=== PATIENT | female | born 1985 | race American Indian/Alaskan Native ===

== ENCOUNTER 2016-11-08 15:15 | Inpatient (IN) | payer SELFPAY ==
[2016-11-08 16:46] LABS: Basophils % (Auto) 0.6 % (0.0-1.8); Eosinophils % (Auto) 0.7 % (0.0-4.3); Hematocrit 37.5 % (30.3-42.9); Hemoglobin 12.1 gm/dl (10.1-14.3); Mean Corpuscular HGB Conc 32 % (30-34); Mean Corpuscular Hemoglobin 26 pg (28-32); Mean Corpuscular Volume 82 fl (79-97); Platelet Count 180 K/mm3 (140-440); Red Blood Count 4.57 M/mm3 (3.65-5.03); Red Cell Distribution Width 13.5 % (13.2-15.2); White Blood Count 5.6 K/mm3 (4.5-11.0)
[2016-11-08 16:57] LABS: INR 1.1 (0.87-1.13)
[2016-11-08 16:58] LABS: Partial Thromboplastin Time 30.5 Sec. (24.2-36.6)
[2016-11-08 17:07] LABS: Anion Gap 16 mmol/L; Blood Urea Nitrogen 9 mg/dL (7-17); Calcium 9.5 mg/dL (8.4-10.2); Carbon Dioxide 25 mmol/L (22-30); Chloride 100.4 mmol/L (98-107); Glucose 95 mg/dL (65-100); Potassium 3.8 mmol/L (3.6-5.0); Sodium 138 mmol/L (137-145)
--- NOTE | 2016-11-08 18:58 | Cat Scan Report ---
FINAL REPORT EXAM: CT HEAD/BRAIN WO CON HISTORY: neuro deficits \T\lt; 6hrs or sx present upon awakening TECHNIQUE: Standard unenhanced CT of the head at 5.0 millimeter axial increments. PRIORS: None. FINDINGS: The ventricular system is normal in size and configuration. There is no evidence for parenchymal volume loss. There is no evidence for mass lesion, mass effect, midline shift, acute intracranial hemorrhage, or acute ischemia/ infarction. No evidence for acute skull fracture is seen. No abnormality in the overlying scalp soft tissues is seen. Numerous focal calcifications along the falx are seen. Visualized paranasal sinuses are clear. IMPRESSION: Negative CT of the head. No acute intracranial process noted.
--- NOTE | 2016-11-08 23:05 | Emergency Department Report ---
HPI - General Chief Complaint: Neuro Symptoms/Deficit Time Seen by Provider: 11/08/16 22:52 - HPI HPI: This is a 31-year-old Afro-Portuguese female presents the emergency department with complaint of right-sided facial numbness and some difficulty with talking. The patient says that a coworker this morning told her that the right side of her face appeared to be slightly drooping. She also has pain to the right lower jaw and has concern for a dental infection. The patient says that it is making her mouth "twist when she talks." Otherwise the patient denies any headache, vision change, problems with movement or ambulation or any another neurological deficits. However the twisting when she talks is causing her to have some slurred speech. The patient says that these symptoms occur intermittently. She has a history of scoliosis. She has a primary care doctor but has not seen them regarding the symptoms. No recent travel or sick contacts at home. She denies any tobacco use or any illicit drug use. ED Past Medical Hx - Past Medical History Previous Medical History?: Yes Additional medical history: Scoliosis. CHRONIC PELVIC PAIN. RUPTURED CYSTS - Surgical History Past Surgical History?: Yes Additional Surgical History: tubes in ear - Social History Smoking Status: Never Smoker Substance Use Type: Alcohol - Medications Home Medications: Home Medications Medication Instructions Recorded Confirmed Last Taken Type Albuterol Sulfate [Ventolin HFA] 2 puff IH Q4H PRN #1 hfa.aer.ad 07/21/13 Unknown Rx Azithromycin [Zithromax Z-LIBORIO] 250 mg PO DAILY #6 tab 07/21/13 Unknown Rx Naproxen [Naprosyn TAB] 07/21/13 07/21/13 Unknown History Prednisone 40 mg PO QDAY #10 tablet 07/21/13 Unknown Rx Promethazine /Codeine 5 ml PO Q6H PRN #60 ml 07/21/13 Unknown Rx [Phenergan/Codeine 6.25-10 mg/5 ml] Cyclobenzaprine [Flexeril] 10 mg PO TID PRN #14 tablet 12/29/13 Unknown Rx HYDROcodone/APAP 5-325 [[place] 1 each PO Q6HR PRN #14 tablet 12/29/13 Unknown Rx 5/325 mg] Ibuprofen [Motrin 800 MG tab] 800 mg PO Q8H #30 tablet 12/29/13 Unknown Rx Ibuprofen [Motrin] 800 mg PO Q8H #30 tablet 07/05/14 Unknown Rx Neomy/Polymyx B/Hc (Otic) Soln 4 drops OT TID 10 Days 07/05/14 Unknown Rx [Cortisporin (Otic) Soln] methOCARBAMOL [Robaxin] 500 mg PO BID #30 tab 07/05/14 Unknown Rx Famotidine [Pepcid] 20 mg PO BID #30 tablet 10/27/14 Unknown Rx Metaxalone [Skelaxin] 800 mg PO TID #30 tablet 10/27/14 Unknown Rx Promethazine [Phenergan] 25 mg PO Q6H PRN #20 tablet 10/27/14 Unknown Rx traMADol [Ultram 50 MG tab] 50 mg PO Q6HR PRN #20 tablet 10/27/14 Unknown Rx Acyclovir [Zovirax Tab] 800 mg PO QID #28 tab 07/01/15 Unknown Rx oxyCODONE /ACETAMINOPHEN [Percocet 1 tab PO Q6HR PRN #30 tablet 07/01/15 Unknown Rx 5/325] ED Review of Systems ROS: Stated complaint: CVA SIGNS AND SX Other details as noted in HPI Comment: All other systems reviewed and negative Constitutional: denies: chills, fever Eyes: denies: eye pain, eye discharge, vision change ENT: dental pain. denies: ear pain, throat pain Respiratory: denies: cough, shortness of breath, wheezing Cardiovascular: denies: chest pain, palpitations Gastrointestinal: denies: abdominal pain, nausea, diarrhea Genitourinary: denies: urgency, dysuria, discharge Musculoskeletal: denies: back pain, joint swelling, arthralgia Skin: denies: rash, lesions Neurological: numbness. denies: headache Physical Exam - Physical Exam Vital Signs: Vital Signs 11/08/16 11/08/16 15:22 22:44 Temperature 98.4 F 98.2 F Pulse Rate 102 H 96 H Respiratory 20 18 Rate Blood Pressure 145/74 Blood Pressure 136/72 [Right] O2 Sat by Pulse 100 99 Oximetry Physical Exam: GENERAL: The patient is well-developed well-nourished. HEENT: Normocephalic. Atraumatic. Extraocular motions are intact. Patient has moist mucous membranes. Pupils equal reactive to light bilaterally. No nystagmus. Oropharynx is clear. She has some tenderness palpation along the right lower gumline but there is no palpable or visible dental abscess. No drooling or trismus. NECK: Supple. Trachea is midline. CHEST/LUNGS: Clear to auscultation. There is no respiratory distress noted. HEART/CARDIOVASCULAR: Regular. There is no tachycardia. There is no gallop rub or murmur. ABDOMEN: Abdomen is soft, nontender. Patient has normal bowel sounds. There is no abdominal distention. SKIN: Skin is warm and dry. NEURO: The patient is awake, alert, and oriented. The patient is cooperative. There are no motor deficits. Patient has subjective decreased sensation to the right side of the face. There is no pronator drift or dysmetria. There is no nasolabial fold paresis but the patient talks out of the right side of her mouth with what appears to be the left side of the mouth being clamped down. This causes slurred sounding speech. MUSCULOSKELETAL: There is no tenderness or deformity. There is no limitation range of motion. There is no evidence of acute injury. Muscle strength 5 out of 5 upper and lower extremities bilaterally. ED Course Vital Signs 11/08/16 11/08/16 15:22 22:44 Temperature 98.4 F 98.2 F Pulse Rate 102 H 96 H Respiratory 20 18 Rate Blood Pressure 145/74 Blood Pressure 136/72 [Right] O2 Sat by Pulse 100 99 Oximetry ED Medical Decision Making - Lab Data Result diagrams: 11/08/16 16:34 11/08/16 16:34 - EKG Data -: EKG Interpreted by [place] EKG shows normal: sinus rhythm (PVCs), axis, intervals, QRS complexes, ST-T waves Rate: normal - EKG Data When compared to previous EKG there are: previous EKG unavailable Interpretation: other (sinus rhythm with PVCs) - Radiology Data Radiology results: report reviewed CT of the head does not show any acute process including no hemorrhage, mass, shift, diffuse edema or skull fracture. - Medical Decision Making 31-year-old female presents the emergency department with complaint of some right-sided numbness and paresthesias, some "twisting" of her mouth and some intermittent slurred speech has been going on since this morning. Patient's CT of the head did not show any bleed, shift, mass or any acute process. EKG does not show any signs of ST elevation [place], dysrhythmia or ischemia. Patient's labs again unremarkable. Physical exam the patient has some subjective decreased sensation of the right side of the face. Patient seen talking on the phone but then during examination appears to be talking out of the right side of her mouth and has some slurred speech. I spoke with the telemedicine neurologist, Dr. Alex, regarding the patient's atypical presentation and he recommends admission for MRI and further evaluation. Patient accepted for admission by the hospitalist, Dr. Weathers. - Differential Diagnosis CVA, TIA, Frances's palsy, malingering Critical Care Time: No Critical care attestation.: If time is entered above; I have spent that time in minutes in the direct care of this critically ill patient, excluding procedure time. ED Disposition Clinical Impression: Right facial numbness, Slurred speech Disposition: OP ADMITTED IP TO THIS HOSP Is pt being admited?: Yes Does the pt Need Aspirin: Yes Condition: Stable Referrals: PRIMARY CARE, [Primary Care Provider] - 3-5 Days Time of Disposition: 23:51
[2016-11-09 00:20] LABS: Urine Drugs of Abuse Note Disclamer
[2016-11-09 00:27] LABS: Bilirubin,Urine NEG (Negative); Blood,Urine SM (Negative); Ketones,Urine NEG (Negative); Leukocyte Esterase,Urine NEG (Negative); Mucus,Urine FEW /HPF; Nitrite,Urine NEG (Negative); Protein,Urine <15 mg/dL mg/dL (Negative); Urobilinogen,Urine < 2.0 mg/dL (<2.0); WBC,Urine < 1.0 /HPF (0.0-6.0)
[2016-11-09] MEDS ORDERED: ZOFRAN IV PRN (00:28)
[2016-11-09] MEDS ORDERED: SODIUM CHLORIDE FLUSH SYRINGE 10 ML IV PRN (00:28)
[2016-11-09] MEDS ORDERED: REGLAN PO PRN (00:28)
[2016-11-09] MEDS ORDERED: MILK OF MAGNESIA PO PRN (00:28)
[2016-11-09] MEDS ORDERED: DULCOLAX PR PRN (00:28)
--- NOTE | 2016-11-09 00:32 | History and Physical Report ---
History of Present Illness Date of examination: 11/09/16 History of present illness: 31 year woman history of chronic pain, scoliosis comes emergency room because this morning she developed right facial droop and slurred speech Patient denies chest pain, palpitation, shortness of breath, cough, abdominal pain, hematochezia, dysuria, frequency, focal weakness, fever chills, polydipsia polyuria, hot or cold intolerance, easy bruisability, or rash or bleeding from mucosal membrane, rhinorrhea, epistaxis, earache, tinnitus, blurry vision, eye discharge, anxiety, depression. Other review of systems negative PAST SURGICAL HISTORY: None SOCIAL HISTORY: Denies alcohol, tobacco, drugs FAMILY HISTORY: Hypertension Medications and Allergies Allergies Allergy/AdvReac Type Severity Reaction Status Date / Time No Known Allergies Allergy Verified 06/30/15 18:35 Home Medications Medication Instructions Recorded Confirmed Last Taken Type Albuterol Sulfate [Ventolin HFA] 2 puff IH Q4H PRN #1 hfa.aer.ad 07/21/13 Unknown Rx Azithromycin [Zithromax Z-LIBORIO] 250 mg PO DAILY #6 tab 07/21/13 Unknown Rx Naproxen [Naprosyn TAB] 07/21/13 07/21/13 Unknown History Prednisone 40 mg PO QDAY #10 tablet 07/21/13 Unknown Rx Promethazine /Codeine 5 ml PO Q6H PRN #60 ml 07/21/13 Unknown Rx [Phenergan/Codeine 6.25-10 mg/5 ml] Cyclobenzaprine [Flexeril] 10 mg PO TID PRN #14 tablet 12/29/13 Unknown Rx HYDROcodone/APAP 5-325 [[place] 1 each PO Q6HR PRN #14 tablet 12/29/13 Unknown Rx 5/325 mg] Ibuprofen [Motrin 800 MG tab] 800 mg PO Q8H #30 tablet 12/29/13 Unknown Rx Ibuprofen [Motrin] 800 mg PO Q8H #30 tablet 07/05/14 Unknown Rx Neomy/Polymyx B/Hc (Otic) Soln 4 drops OT TID 10 Days 07/05/14 Unknown Rx [Cortisporin (Otic) Soln] methOCARBAMOL [Robaxin] 500 mg PO BID #30 tab 07/05/14 Unknown Rx Famotidine [Pepcid] 20 mg PO BID #30 tablet 10/27/14 Unknown Rx Metaxalone [Skelaxin] 800 mg PO TID #30 tablet 10/27/14 Unknown Rx Promethazine [Phenergan] 25 mg PO Q6H PRN #20 tablet 10/27/14 Unknown Rx traMADol [Ultram 50 MG tab] 50 mg PO Q6HR PRN #20 tablet 10/27/14 Unknown Rx Acyclovir [Zovirax Tab] 800 mg PO QID #28 tab 07/01/15 Unknown Rx oxyCODONE /ACETAMINOPHEN [Percocet 1 tab PO Q6HR PRN #30 tablet 07/01/15 Unknown Rx 5/325] Exam - Physical Exam Narrative exam: Gen. appearance: Patient lying in bed, no apparent distress HEENT: Normocephalic, atraumatic, pupils equally round and reactive to light, extraocular movement intact, and no sclericterus,. No JVD or thyromegaly or nodule,neck supple, no carotid bruit ,mucous membranes moist, no exudate or erythema Heart: S1, S2, regular rate and rhythm Lungs: Clear to auscultation bilaterally, breathing comfortable Abdomen: Positive bowel sounds, nontender, nondistended, no organomegaly Extremity: No edema, cyanosis, clubbing Skin: No rash, nodules, warm, dry Neuro: Oriented 3, cranial nerves II-12 intact, speech is slurred, motor and sensory intact - Constitutional Vitals: Temp Pulse Resp BP Pulse Ox 98.2 F 104 H 12 106/62 88 11/08/16 22:44 11/08/16 23:51 11/08/16 23:51 11/08/16 23:51 11/08/16 23:51 Results - Labs CBC & Chem 7: 11/08/16 16:34 11/08/16 16:34 Labs: Abnormal lab results 11/08/16 11/08/16 Range/Units 16:34 16:34 MCH 26 L (28-32) pg Creatinine 0.6 L (0.7-1.2) mg/dL - Imaging and Cardiology CT Scan - head: report reviewed Assessment and Plan Possible stroke Scoliosis Chronic pain Admits medicine Obtain MRI of the head, carotid Doppler, echo, lipid profile Do neurochecks, swallow screen Consult neurology, start aspirins, statin, DVT prophylaxis
--- NOTE | 2016-11-09 01:19 | Admit Criteria Form ---
Admission Criteria Documentation: NEUROLOGY GRG Clinical Indications for Admission to Inpatient Care (Place ' X' for any and all applicable criteria): Hospital admission is needed for appropriate care of the patient because of ANY ONE of the following: [ ]I. New-onset or worsening altered mental status remaining after emergency or observation level care (as appropriate) (9)(10)(11) [ ]II. Severe MOCCASIN SEWER infections or inflammatory conditions, including ANY ONE of the following(1)(2)(3): [ ]a) Intracranial abscess [ ]b) Spinal abscess or myelitis [ ]c) Tuberculous or other nonbacterial, nonviral MOCCASIN SEWER infection(8) [ ]III. Encephalitis(1)(2)(3) [ ]IV. Status epilepticus or repetitive seizures not controlled with emergent treatment [A] (7)(8) [ ]V. Transient alteration in consciousness with high-risk etiology; examples include (12)(13): [ ]a) Cardiovascular source [ ]b) Cataplexy [ ]. Cerebral aneurysm requiring ANY ONE of the following(14): [ ]a) IV antihypertensives or vasoactive agents [ ]b) Sedation and analgesia for suspected leak [ ]c) Need for external ventricular drainage and cerebral perfusion pressure monitoring [ ]d) Emergent evaluation to determine need for surgical clipping or endovascular coiling by interventional radiology. If surgery is required ( Also use Craniotomy, Supratentorial, for Surgery of Bleeding Intracranial Aneurysm (for bleeding aneurysm) or Craniotomy, Supratentorial (for nonbleeding aneurysm) as appropriate. [ ]VII. Altered mental status that is severe or persistent(16) [ ]VIII New-onset severe neurologic findings requiring inpatient care; examples include: [ ]a) Papilledema [ ]b) Cerebral edema [ ]c) Mass effect on imaging [ X]IX. New-onset severe neurologic symptom requiring inpatient care indicated by ANY ONE of the following: [ ]a) Aphasia(15) [ ]b) Weakness (grade 3 or less) [ ]c) Paralysis (eg, hemiplegia) [ ]d) Spasticity(16) [ ]e) Ataxia(17) [ ]f) Amnesia(18) [ ]g) Involuntary movements(19) [ ]h) Vertigo [ X]i) Other severe neurologic symptom not treatable at alternative level of care (eg, observation care) [ ]X. Guillain-[place] syndrome(20) [ ]XI. Myasthenia gravis crisis or inpatient monitoring need as indicated by ANY ONE of the following(21): [ ]a) Inadequate airway protection [ ]b) Respiratory insufficiency requiring intubation or inpatient. monitoring [ ]c) Progressive dysphagia with failure to thrive [ ]d) Intensive treatment (eg, course of plasmapheresis) with inadequate outpatient situation to monitor patients status [ ]XII. Multiple sclerosis or other acute demyelinating disease requiring inpatient care as indicated by ANY ONE of the following (22)(23): [ ]a) Acute severe deterioration requiring inpatient treatment (eg, IV steroids, plasmapheresis, close observation) [ ]b) Acute complication requiring inpatient care (eg, sepsis, severe decubitus, aspiration) [ ]XIII. Intracranial hypertension (eg, pseudotumor cerebri) requiring inpatient care (eg, acute visual loss, inadequate oral intake) (24) [ ]XIV.Parkinson disease requiring inpatient care (Also use Optimal Recovery Care Criteria or General Recovery Criteria as appropriate) indicated by ANY ONE of the following(25): [ ]a) Infection (eg, aspiration pneumonia) not treatable at alternative level of care [ ]b) Volume depletion not responsive to emergency and observation care treatment (as appropriate) [ ]c) Life-threatening agitation or psychotic behavior not treatable on emergency, observation care, or alternative level (eg, residential) basis [ ]d) Severe medication withdrawal effects (eg, freezing, neuroleptic malignant syndrome) not responsive to emergency and observation care treatment (as appropriate) [ ]e) Other severe manifestation not treatable at alternative level of care [ ]XV.Amyotrophic lateral sclerosis with inpatient care needs as indicated by ANY ONE of the following(26): [ ]a) Acute complications requiring inpatient care (Use Optimal Recovery Care Criteria or General Recovery Criteria as appropriate); examples include: [ ]i) Aspiration pneumonia [ ]ii) Sepsis [ ]b) Dehydration or hypovolemia (not responsive to emergency and observation care treatment as appropriate) AND artificial support desired [ ]c) Inadequate airway protection AND artificial support desired [ ]d) Severe ventilatory insufficiency AND artificial support desired [ ]XVI.Severe myopathy, neuropathy, or other neuromuscular disease as indicated by ANY ONE of the following: [ ]a) New-onset severe diffuse weakness (eg, strength 3/5 or less) [ ]b) Severe dysphagia [ ]c) Dyspnea at rest or with minimal exertion (new) [ ]d) Inadequate airway protection [ ]e) Inadequate ventilation as indicated by ANY ONE of the following : [ ]i) Partial pressure of carbon dioxide greater than 44 mm Hg (5.9 kPa) (new) [ ]ii) Reduced peak expiratory flow rate (new) [ ]iii) Vital capacity less than 50% of predicted ( less than 15 mL/kg) [ ]iv) Peak inspiratory force less negative than -30 cm H20 (-2942 Pa) [ ]XVII.Complications of congenital or degenerative disease (eg, infection, seizures, dehydration, injury) not responsive to emergency and observation care treatment (as appropriate ) [C](16)(29)(30) [ ]XVIII.Suspected or confirmed nerve or muscle toxic injury, including ANY ONE of the following: [ ]a) Rhabdomyolysis(31) [ ]b) Botulism(32) [ ]c) Other severe toxin-induced sign or symptom [ ]XIX. Neurologic trauma requiring inpatient treatment (medical) indicated by ANY ONE of the following(33)(34): [ ]a) Vital signs or neurologic signs more frequently than every 4 hours [ ]b) Hyperosmolar therapy [ ]c) Respiratory monitoring [ ]d) Intracranial pressure monitoring and treatment [ ]e) Stabilization and immobilization device placement (eg, braces, body jacket) [ ]f) Intubation & mechanical ventilation for airway protection or therapeutic hyperventilation [ ]g) Other treatment or monitoring needed that requires inpatient level of care [ ]XX.Complications of neurologic devices (eg, ventricular shunt, neurostimulator) requiring ANY ONE of the following(35)(36): [ ]a) IV antibiotics with monitoring while awaiting culture results [ ]b) Monitoring for hydrocephalus [ ]XXI Vasculitis with ANY ONE of the following(4)(5): [ ]a) Altered mental status [ ]b) Psychosis [ ]c) Seizures [ ]XXII. Neurology condition and ALL of the following: [ ]a) Symptom or finding for which emergency and observation care have failed or are not considered appropriate (Use General Criteria: Observation Care as appropriate) [ ]b) Presence of ANY ONE of the following: [ ]i) A General Admission Criteria [ ]ii A Pediatric General Admission Criteria The original [facility] content created by [facility] has been revised. The portions of the content which have been revised are identified through the use of italic text or in bold, and [facility] has neither reviewed nor approved the modified material. All other unmodified content is copyright [facility] Please see references footnoted in the original [facility] edition 2016 Admission Criteria Met: Yes
--- NOTE | 2016-11-09 11:48 | Magnetic Resonance Report ---
MRI BRAIN WITHOUT CONTRAST INDICATION: Stroke. COMPARISON: Head CT from last evening. FINDINGS: Noncontrast multiplanar and multisequence MRI of the brain demonstrates normal ventricles and sulci without acute infarct, hemorrhage, mass effect or midline shift. Few small white matter FLAIR and T2 weighted hyperintensities. No abnormal extra-axial masses or fluid collections. Normal major intracranial vascular flow voids. Preserved basilar cisterns with symmetric seventh and eighth nerve complexes. Symmetric, grossly unremarkable eye globes. Clear paranasal sinuses and temporal bone air cells with mastoid tips not pneumatized. Cerebellar tonsils extend for approximately 4-5 mm below the foramen magnum near the midline. Otherwise unremarkable midline appearance. CONCLUSION: No acute intracranial MRI abnormality with borderline Chiari 1 malformation noted, as described. Thank you for the opportunity to participate in this patient's care.
[2016-11-09] MEDS: LOVENOX SUB-Q SCH (11:58)
[2016-11-09] MEDS: ASPIRIN PO SCH (13:10)
[2016-11-09] MEDS: TYLENOL PO PRN (21:34)
[2016-11-09] MEDS: ZOCOR PO SCH (21:38)
--- NOTE | 2016-11-10 10:38 | Electroencephalogram Report ---
Electroencephalogram EEG Date of exam: 11/10/16 History: 31 YO F Hx facial droop and slurred speech. Impression: Normal awake and drowsy 20 minute routine EEG. There are no findings to suggest cerebral dysfunction, cortical irritability, epileptiform discharges or electrographic seizures. Please note however that a normal EEG does not completely exclude a clinical diagnosis of epilepsy. Description: The waking background shows an appropriate organization with well-defined anterior posterior voltage and frequency gradients. Posteriorly, there is a well -developed alpha rhythm of 10 Hz which is symmetrical and bilaterally reactive. Anteriorly, there is a pattern of lower voltage and slightly irregular theta and beta range frequencies. During drowsiness, there is attenuation of the background rhythms. There is no sleep background. Throughout, the recording there are no epileptiform abnormalities, focal or lateralizing features, or significant interhemispheric findings. Interpretation: This is a digitally acquired 21-channel electroencephalogram. Both bipolar and referential montages were used in interpretation. Electrodes were placed in accordance with the International 10-20 system.
[2016-11-10] MEDS: ASPIRIN PO SCH (11:30)
[2016-11-10] MEDS: LOVENOX SUB-Q SCH (11:30)
[2016-11-10] MEDS: TYLENOL PO PRN ×2 (13:19→22:14)
--- NOTE | 2016-11-10 14:07 | Discharge Summary ---
Providers - Providers Date of Admission: 11/09/16 00:28 Date of discharge: 11/10/16 Attending physician: JONATHON DUMONT Primary care physician: [employer]PERATOR Hospitalization Reason for admission: facial droop, slurred speech Condition: Stable Pertinent studies: CT head MRI brain EEG ECHO Carotid Doppler Disposition: DISCHARGED TO HOME OR SELFCARE Time spent for discharge: 35 min Core Measure Documentation - Palliative Care Palliative Care/ Comfort Measures: Not Applicable - Core Measures Any of the following diagnoses?: none Exam - Constitutional Vitals: Temp Pulse Resp BP Pulse Ox 97.6 F 85 16 118/68 94 11/10/16 13:21 11/10/16 13:21 11/10/16 13:21 11/10/16 13:21 11/10/16 13:21 Plan Activity: advance as tolerated Diet: low cholesterol, low salt Follow up with: PRIMARY CARE, [Primary Care Provider] - 3-5 Days
[2016-11-10] MEDS: ZOCOR PO SCH (22:14)
--- NOTE | 2016-11-11 08:25 | Vascular Lab Report ---
CAROTID DUPLEX STUDY: RIGHT PSVEDV CCA PROX:[id number] CCA DIST:[id number] ICA PROX: [id number] ICA MID: 8031 ICA DIST: 9231 ECA: [id number] VERT: 69 15 LEFT PSVEDV CCA PROX:[id number] CCA DIST:00464 ICA PROX: 9230 ICA MID: 8537 ICA DIST: 9335 ECA: [id number] VERT: 52 16 REASON FOR EXAM: Stroke. COMMENTS ON THE RIGHT: Doppler frequency analysis is consistent with 16 to 49 percent diameter reduction of the internal carotid artery. Minimal amount of plaque is seen. The common carotid artery is patent. The external carotid artery is patent. The vertebral artery has antegrade flow. COMMENTS ON THE LEFT: Doppler frequency analysis is consistent with 16 to 49 percent diameter reduction of the internal carotid artery. Minimal amount of plaque is seen. The common carotid artery is patent. The external carotid artery is patent. The vertebral artery has antegrade flow. IMPRESSION: Less than 50% diameter reduction in the internal carotid arteries bilaterally. Consider repeat carotid artery duplex in 12 months.
[2016-11-11 09:00] VITALS: BP 118/72
--- NOTE | 2016-11-11 10:04 | Consultation ---
History of Present Illness Consult date: 11/11/16 Requesting physician: JONATHON DUMONT Reason for Consult: frances's palsy Chief complaint: L facial droop History of present illness: 31 YO F Hx shingles in the past p/w L facial droop on 11/08. Sx noted on 11/05 and have been gradually worsening. There are no clear aggravating, relieving or temporal factors. Severity causes slurred speech and obvious facial asymmetry. Sx are constant. Past History Past Medical History: other (Shingles, chronic pain) Past Surgical History: No surgical history Social history: no significant social history, single. denies: smoking, alcohol abuse, prescription drug abuse, IV drug use Family history: hypertension Medications and Allergies Allergies Allergy/AdvReac Type Severity Reaction Status Date / Time No Known Allergies Allergy Verified 06/30/15 18:35 Home Medications Medication Instructions Recorded Confirmed Last Taken Type Albuterol Sulfate [Ventolin HFA] 2 puff IH Q4H PRN #1 hfa.aer.ad 07/21/13 3 Days Ago Rx Cyclobenzaprine [Flexeril 10 MG 10 mg PO TID PRN #14 tablet 12/29/13 11/11/16 3 Days Ago Rx TAB] Ibuprofen [Motrin 800 MG tab] 800 mg PO Q8H #30 tablet 12/29/13 11/11/16 3 Days Ago Rx Neomy/Polymyx B/Hc (Otic) Soln 4 drops OT TID 10 Days 07/05/14 11/11/16 3 Days Ago Rx [Cortisporin (Otic) Soln] methOCARBAMOL [Robaxin TAB] 500 mg PO BID #30 tab 07/05/14 11/11/16 3 Days Ago Rx Famotidine [Pepcid] 20 mg PO BID #30 tablet 10/27/14 11/11/16 3 Days Ago Rx Metaxalone [Skelaxin] 800 mg PO TID #30 tablet 10/27/14 11/11/16 3 Days Ago Rx Promethazine [Phenergan TAB] 25 mg PO Q6H PRN #20 tablet 10/27/14 11/11/16 3 Days Ago Rx Active Meds: Active Medications Acetaminophen (Tylenol) 650 mg PO Q4H PRN PRN Reason: Pain, Mild (1-3) Last Admin: 11/10/16 22:14 Dose: 650 mg Aspirin (Aspirin) 325 mg PO QDAY [facility] Last Admin: 11/10/16 11:30 Dose: 325 mg Bisacodyl (Dulcolax) 10 mg [place] QDAY PRN PRN Reason: Constipation Enoxaparin Sodium (Lovenox) 40 mg SUB-Q QDAY [facility] Last Admin: 11/10/16 11:30 Dose: 40 mg Magnesium Hydroxide (Milk Of Magnesia) 30 ml PO Q4H PRN PRN Reason: Constipation Metoclopramide HCl (Reglan) 10 mg PO Q6H PRN PRN Reason: Nausea And Vomiting Ondansetron HCl (Zofran) 4 mg IV Q8H PRN PRN Reason: N/V unrelieved by Reglan Simvastatin (Zocor) 20 mg PO QHS [facility] Last Admin: 11/10/16 22:14 Dose: 20 mg Sodium Chloride (Sodium Chloride Flush Syringe 10 Ml) 10 ml IV PRN PRN PRN Reason: LINE FLUSH Review of Systems Constitutional: fatigue, chronic pain Neurological: paralysis (L face), headaches, change in speech (slurred) Physical Examination - Vital Signs Vital Signs: Vital Signs Temp Pulse Resp BP Pulse Ox 98.4 F 102 H 20 145/74 100 11/08/16 15:22 11/08/16 15:22 11/08/16 15:22 11/08/16 15:22 11/08/16 15:22 - Constitutional General appearance: comfortable - EENT EENT: Present: ATNC, PERRL, mucous membranes moist, hearing intact, vision intact - Respiratory Respiratory: Present: chest non-tender, lungs clear, no respiratory distress - Cardiovascular Cardiovascular: Present: regular rate Extremities: Present: no peripheral edema bilatateraly, no clubbing, cyanosis, no inflammation, no ischemia or petechiae - Gastrointestinal Gastrointestinal: Present: normoactive bowel sounds, soft, non-distended - Integumentary Integumentary: Present: normal - Neurologic Cranial nerve examination: PERRL, EOMI, VFF, V1/V2/V3 grossly intact, tongue midline, intact, intact shoulder shrug, intact cough reflex, Intact Vestibulo- ocular r, facial droop (upper and lower on L), normal palatal elevation Speech examination: other (dysarthria) Sensorimotor examination: intact Detailed motor examination: full strength in all babs Motor examination - right side: 5/5: biceps, triceps, wrist flexion, wrist extension, foreign clerk, hip flexors, knee extensors, dorsiflexion, toe extension (EHL) , plantarflexion Motor examination - left side: 5/5: biceps, triceps, wrist flexion, wrist extension, foreign clerk, hip flexors, knee extensors, dorsiflexion, toe extension (EHL) , plantarflexion Detailed sensory examination: intact, light touch, temperature Reflex and gait examination: intact Reflexes: 2+: ankle, bicep, knee, tricep - Musculoskeletal Musculoskeletal: Present: no fluid collection, no pain, normal range of motion - Psychiatric Psychiatric: Present: mood/affect appropriate, cooperative Results - Laboratory Findings CBC and BMP: 11/08/16 16:34 11/08/16 16:34 Abnormal Lab Findings: Abnormal Labs 11/10/16 04:54 HDL Cholesterol 92 H Assessment and Plan 31 YO F Hx singles p/w approx 1 week of progressive L facial droop w/ slurred speech. Neuro exam confirms L CN7 palsy but no other CN or neuro deficits. 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 Recs: 1. Prednisone 40-60mg QDay x 7 days concurrently w/ Valacyclovir 1g TID x 7 days 2. Outpt neuro follow up in 2-3 months 3. Eye care including patching, artificial tears etc. 4. We can revisit as needed.
[2016-11-11] MEDS: ASPIRIN PO SCH (10:37)
[2016-11-11] MEDS: LOVENOX SUB-Q SCH (10:37)
--- NOTE | 2016-11-11 11:05 | Discharge Summary ---
Providers - Providers Date of Admission: 11/09/16 00:28 Date of discharge: 11/11/16 Attending physician: JONATHON DUMONT 11/10/16 17:21 Consult to Physician [CONS] Routine Consulting Provider: CLAUS HERNANDEZ Reason For Exam: possible [facility] consult to:: Constanza Notified:: left message Primary care physician: [facility] Hospitalization Condition: Stable Disposition: DISCHARGED TO HOME OR SELFCARE Core Measure Documentation - Palliative Care Palliative Care/ Comfort Measures: Not Applicable Exam - Constitutional Vitals: Temp Pulse Resp BP Pulse Ox 97.6 F 72 18 118/72 98 11/11/16 09:00 11/11/16 09:34 11/11/16 09:00 11/11/16 09:00 11/11/16 09:00 Plan Activity: advance as tolerated Diet: low cholesterol, low salt Follow up with: [facility] [Outside] - 11/18/16 2:30 am PRIMARY CARE, [Primary Care Provider] - 3-5 Days Prescriptions: predniSONE [Deltasone] 40 mg PO QDAY #14 tablet valACYclovir [Valtrex] 1,000 mg PO TID #42 tablet
[2016-11-11] MEDS ORDERED: VALTREX PO SCH (14:00)
[2016-11-12] MEDS ORDERED: DELTASONE PO SCH (10:00)
== END 2016-11-11 14:19 | disposition home or self-care (01) | DRG 74 ==
LOC: ED 15:15 → 4A 11-09 00:28
PROVIDERS: ADMIT Internal Medicine; ATTEND Internal Medicine
DX: G51.0 Bell's palsy (principal); R47.81 Slurred speech; Z82.49 Family history of ischemic heart disease and other diseases of the circulatory system; M41.9 Scoliosis, unspecified; G89.29 Other chronic pain; Z86.19 Personal history of other infectious and parasitic diseases
CPT/HCPCS: 36415; 70450; 70551; 80048; 80061; 80307; 81001; 81025; 84484; 85025; 85610; 85670; 85730; 93005; 93010; 93306; 93880; 95819; J1650

== ENCOUNTER 2017-08-30 20:51 | Emergency (ER) | payer SELFPAY ==
--- NOTE | 2017-08-30 21:38 | Emergency Department Report ---
ED Neuro Deficit HPI - General Chief Complaint: Medical Clearance Stated Complaint: FACIAL DROOP Time Seen by Provider: 08/30/17 21:23 Source: patient, EMS Mode of arrival: Stretcher Limitations: No Limitations - History of Present Illness Initial Comments: Patient is 32 years old female presented to the ER via EMS for recurrent right- sided facial droop. Patient had history of Frances's palsy in October,,patient was admitted for stroke workup. Workup came back completely negative. Patient stated that her symptoms started today. Patient denied any weakness, numbness or tingling sensation. No headache, bowel or bladder incontinence. -: Gradual, This afternoon Location: left face, right face Presenting Symptoms: Present: Facial Droop/Numbness, Unable to Speak Clearly. Absent: Weak/Paralyzed One Side, Sudden, Severe Headache, Blurred/Loss of Vision , Altered Mental Status History of same: Yes Severity: moderate Associated Symptoms: denies other symptoms - Related Data Home Medications: Previous Rx's Medication Instructions Recorded Last Taken Type Albuterol Sulfate [Ventolin HFA] 2 puff IH Q4H PRN #1 hfa.aer.ad 07/21/13 3 Days Ago Rx ~11/08/16 Cyclobenzaprine [Flexeril 10 MG 10 mg PO TID PRN #14 tablet 12/29/13 3 Days Ago Rx TAB] ~11/08/16 Ibuprofen [Motrin 800 MG tab] 800 mg PO Q8H #30 tablet 12/29/13 3 Days Ago Rx ~11/08/16 Neomy/Polymyx B/Hc (Otic) Soln 4 drops OT TID 10 Days bottle 07/05/14 3 Days Ago Rx [Cortisporin (Otic) Soln] ~11/08/16 methOCARBAMOL [Robaxin TAB] 500 mg PO BID #30 tab 07/05/14 3 Days Ago Rx ~11/08/16 Famotidine [Pepcid] 20 mg PO BID #30 tablet 10/27/14 3 Days Ago Rx ~11/08/16 Metaxalone [Skelaxin] 800 mg PO TID #30 tablet 10/27/14 3 Days Ago Rx ~11/08/16 Promethazine [Phenergan TAB] 25 mg PO Q6H PRN #20 tablet 10/27/14 3 Days Ago Rx ~03/27/17 predniSONE [Deltasone] 40 mg PO QDAY #14 tablet 11/11/16 Unknown Rx valACYclovir [Valtrex] 1,000 mg PO TID #42 tablet 11/11/16 Unknown Rx Allergies/Adverse Reactions: Allergies Allergy/AdvReac Type Severity Reaction Status Date / Time No Known Allergies Allergy Verified 06/30/15 18:35 ED Review of Systems ROS: Stated complaint: FACIAL DROOP Other details as noted in HPI Comment: All other systems reviewed and negative Constitutional: denies: chills Respiratory: denies: cough, orthopnea, shortness of breath, SOB with exertion, wheezing Gastrointestinal: denies: abdominal pain, nausea, vomiting, diarrhea, constipation Musculoskeletal: denies: back pain, joint swelling Skin: denies: rash Neurological: denies: headache, weakness, numbness, paresthesias ED Past Medical Hx - Past Medical History Previous Medical History?: Yes Hx Congestive Heart Failure: No Hx Diabetes: No Hx Asthma: No Hx COPD: No Hx HIV: No Additional medical history: Scoliosis. CHRONIC PELVIC PAIN. RUPTURED CYSTS - Surgical History Past Surgical History?: Yes Additional Surgical History: tubes in ear - Social History Smoking Status: Never Smoker - Medications Home Medications: Home Medications Medication Instructions Recorded Confirmed Last Taken Type Albuterol Sulfate [Ventolin HFA] 2 puff IH Q4H PRN #1 hfa.aer.ad 07/21/13 3 Days Ago Rx ~11/08/16 Cyclobenzaprine [Flexeril 10 MG 10 mg PO TID PRN #14 tablet 12/29/13 11/11/16 3 Days Ago Rx TAB] ~11/08/16 Ibuprofen [Motrin 800 MG tab] 800 mg PO Q8H #30 tablet 12/29/13 11/11/16 3 Days Ago Rx ~11/08/16 Neomy/Polymyx B/Hc (Otic) Soln 4 drops OT TID 10 Days bottle 07/05/14 11/11/16 3 Days Ago Rx [Cortisporin (Otic) Soln] ~11/08/16 methOCARBAMOL [Robaxin TAB] 500 mg PO BID #30 tab 07/05/14 11/11/16 3 Days Ago Rx ~11/08/16 Famotidine [Pepcid] 20 mg PO BID #30 tablet 10/27/14 11/11/16 3 Days Ago Rx ~11/08/16 Metaxalone [Skelaxin] 800 mg PO TID #30 tablet 10/27/14 11/11/16 3 Days Ago Rx ~11/08/16 Promethazine [Phenergan TAB] 25 mg PO Q6H PRN #20 tablet 10/27/14 11/11/16 3 Days Ago Rx ~11/08/16 predniSONE [Deltasone] 40 mg PO QDAY #14 tablet 11/11/16 Unknown Rx valACYclovir [Valtrex] 1,000 mg PO TID #42 tablet 11/11/16 Unknown Rx ED Neuro Physical Exam - General Limitations: No Limitations General appearance: alert, in no apparent distress Suspected Stroke: No - Head Head exam: Present: atraumatic, normocephalic, normal inspection - Eye Eye exam: Present: normal appearance, PERRL Pupils: Present: normal accommodation - ENT ENT exam: Present: normal exam, normal orophraynx, mucous membranes moist - Neck Neck exam: Present: normal inspection, full ROM. Absent: tenderness, meningismus, lymphadenopathy, thyromegaly - Respiratory Respiratory exam: Present: normal lung sounds bilaterally. Absent: respiratory distress, wheezes, rales, rhonchi, stridor, chest wall tenderness, accessory muscle use, decreased breath sounds, prolonged expiratory - Cardiovascular Cardiovascular Exam: Present: regular rate, normal heart sounds. Absent: normal rhythm, bradycardia, tachycardia, irregular rhythm, systolic murmur, diastolic murmur, rubs - GI/Abdominal GI/Abdominal exam: Present: soft, normal bowel sounds. Absent: distended, tenderness, guarding, rebound, rigid, diminished bowel sounds, organomegaly, mass, bruit, pulsatile mass, hernia - Extremities Exam Extremities exam: Present: normal inspection, full ROM, normal capillary refill - Back Exam Back exam: Present: normal inspection, full ROM. Absent: tenderness, CVA tenderness (R), CVA tenderness (L), muscle spasm, paraspinal tenderness, vertebral tenderness - Neurological Exam Neurological exam: Present: alert, oriented X3, CN II-XII intact, normal gait - Psychiatric Psychiatric exam: Present: normal affect - Skin Skin exam: Present: warm, intact, normal color ED Course Vital Signs 08/30/17 08/30/17 08/30/17 21:27 21:30 21:46 Pulse Rate 81 85 Respiratory 19 16 Rate Blood Pressure 119/77 119/77 129/79 O2 Sat by Pulse 100 100 97 Oximetry - Lab Data Lab Results 08/30/17 08/30/17 Range/Units 22:17 22:17 Urine HCG, Qual Negative (Negative) Urine Opiates Screen Presumptive negative Urine Methadone Screen Presumptive negative Ur Barbiturates Screen Presumptive negative Ur Phencyclidine Scrn Presumptive negative Ur Amphetamines Screen Presumptive negative U Benzodiazepines Scrn Presumptive negative Urine Cocaine Screen Presumptive negative U Marijuana (THC) Screen Presumptive negative - Radiology Data Radiology results: report reviewed Referring Physician: DISHA SCHUMACHER Patient Name: RUBIA REEVES Date of : 1985 Sex: Female Report Date: 2017-08-30 Report Status: Finalized Findings [facility] [address] [place] [address] Cat Scan Report Signed Patient: RUBIA REEVES MR#: [id number] : 1985 Acct:[id number] Age/Sex: 32 / F ADM Date: 08/30/17 Loc: ED Attending Dr: Ordering Physician: DISHA SCHUMACHER Date of Service: 08/30/17 Procedure(s): CT head/brain wo con Accession Number(s): [id number] cc: DISHA SCHUMACHER FINAL REPORT EXAM: CT HEAD/BRAIN WO CON HISTORY: slurred speech TECHNIQUE: Noncontrast CT axial images of the brain. PRIORS: 08 November 2016. FINDINGS: No parenchymal mass, mass effect, hemorrhage, midline shift or hydrocephalus. No evidence of acute cortical infarct. No abnormal, extra-axial fluid or air collection. Osseous calvarium grossly intact. IMPRESSION: 1. No acute intracranial findings. Transcribed By: [facility] Dictated By: MAURA LERMA MD Electronically Authenticated By: MAURA LERMA MD Signed Date/Time: 08/30/171845 DD/ 45 TD/TT: 08/30/171845 Critical care attestation.: If time is entered above; I have spent that time in minutes in the direct care of this critically ill patient, excluding procedure time. ED Disposition Clinical Impression: Frances's palsy Disposition: DC-01 TO HOME OR SELFCARE Is pt being admited?: No Condition: Stable Instructions: Frances Palsy (ED) Referrals: PRIMARY CARE, [Primary Care Provider] - 3-5 Days
--- NOTE | 2017-08-30 22:48 | Cat Scan Report ---
FINAL REPORT EXAM: CT HEAD/BRAIN WO CON HISTORY: slurred speech TECHNIQUE: Noncontrast CT axial images of the brain. PRIORS: 08 November 2016. FINDINGS: No parenchymal mass, mass effect, hemorrhage, midline shift or hydrocephalus. No evidence of acute cortical infarct. No abnormal, extra-axial fluid or air collection. Osseous calvarium grossly intact. IMPRESSION: 1. No acute intracranial findings.
[2017-08-30 23:58] LABS: HCG Qualitative,Urine Negative (Negative)
[2017-08-31 00:04] LABS: Amphetamine Screen,Urine PRESUMPTIVE NEGATIVE; Benzodiazepines Screen,Urine PRESUMPTIVE NEGATIVE; Cannabinoid Screen,Urine PRESUMPTIVE NEGATIVE; Cocaine Screen,Urine PRESUMPTIVE NEGATIVE; Methadone Screen,Urine PRESUMPTIVE NEGATIVE; Opiate Screen,Urine PRESUMPTIVE NEGATIVE
[2017-08-31 00:48] VITALS: BP 125/84
== END 2017-08-31 00:51 | disposition home or self-care (01) ==
LOC: ED 20:51
DX: G51.0 Bell's palsy (principal)
CPT/HCPCS: 70450; 80307; 81025; 99284

== ENCOUNTER 2018-12-07 08:00 | Emergency (ER) | payer SELFPAY ==
--- NOTE | 2018-12-07 09:18 | Emergency Department Report ---
ED ENT HPI - General Chief complaint: Earache Stated complaint: RT SIDE FACE SWELLING Time Seen by Provider: 12/07/18 08:29 Source: patient Mode of arrival: Ambulatory Limitations: No Limitations - History of Present Illness Initial comments: Ms. Augustin is a 33 yo female with hx of Frances's palsy who presents with pain and "abscess" at lower left tooth. Since diagnosis of Frances's palsy, she has had facial pain and twitching. MD complaint: tooth pain -: Gradual, week(s) (several) Location: tooth # (18-19) Severity: severe Quality: aching Consistency: constant Worsens with: eating Context- Dental: history of dental caries - Related Data Previous Rx's Medication Instructions Recorded Last Taken Type Albuterol Sulfate [Ventolin HFA] 2 puff IH Q4H PRN #1 hfa.aer.ad 07/21/13 3 Days Ago Rx ~11/08/16 Cyclobenzaprine [Flexeril 10 MG 10 mg PO TID PRN #14 tablet 12/29/13 3 Days Ago Rx TAB] ~11/08/16 Ibuprofen [Motrin 800 MG tab] 800 mg PO Q8H #30 tablet 12/29/13 3 Days Ago Rx ~11/08/16 Neomy/Polymyx B/Hc (Otic) Soln 4 drops OT TID 10 Days bottle 07/05/14 3 Days Ago Rx [Cortisporin (Otic) Soln] ~11/08/16 methOCARBAMOL [Robaxin TAB] 500 mg PO BID #30 tab 07/05/14 3 Days Ago Rx ~11/08/16 Famotidine [Pepcid] 20 mg PO BID #30 tablet 10/27/14 3 Days Ago Rx ~11/08/16 Metaxalone [Skelaxin] 800 mg PO TID #30 tablet 10/27/14 3 Days Ago Rx ~11/08/16 Promethazine [Phenergan TAB] 25 mg PO Q6H PRN #20 tablet 10/27/14 3 Days Ago Rx ~11/08/16 predniSONE [Deltasone] 40 mg PO QDAY #14 tablet 11/11/16 Unknown Rx valACYclovir [Valtrex] 1,000 mg PO TID #42 tablet 11/11/16 Unknown Rx Naproxen [Naprosyn] 500 mg PO BID #14 tablet 08/31/17 Unknown Rx Penicillin V Potassium 500 mg PO QID 10 Days #40 tablet 12/07/18 Unknown Rx Allergies Allergy/AdvReac Type Severity Reaction Status Date / Time No Known Allergies Allergy Verified 06/30/15 18:35 ED Dental HPI - General Chief complaint: Earache Stated complaint: RT SIDE FACE SWELLING Time Seen by Provider: 12/07/18 08:29 Source: patient Mode of arrival: Ambulatory Limitations: No Limitations - Related Data Previous Rx's Medication Instructions Recorded Last Taken Type Albuterol Sulfate [Ventolin HFA] 2 puff IH Q4H PRN #1 hfa.aer.ad 07/21/13 3 Days Ago Rx ~11/08/16 Cyclobenzaprine [Flexeril 10 MG 10 mg PO TID PRN #14 tablet 12/29/13 3 Days Ago Rx TAB] ~11/08/16 Ibuprofen [Motrin 800 MG tab] 800 mg PO Q8H #30 tablet 12/29/13 3 Days Ago Rx ~11/08/16 Neomy/Polymyx B/Hc (Otic) Soln 4 drops OT TID 10 Days bottle 07/05/14 3 Days Ago Rx [Cortisporin (Otic) Soln] ~11/08/16 methOCARBAMOL [Robaxin TAB] 500 mg PO BID #30 tab 07/05/14 3 Days Ago Rx ~11/08/16 Famotidine [Pepcid] 20 mg PO BID #30 tablet 10/27/14 3 Days Ago Rx ~11/08/16 Metaxalone [Skelaxin] 800 mg PO TID #30 tablet 10/27/14 3 Days Ago Rx ~11/08/16 Promethazine [Phenergan TAB] 25 mg PO Q6H PRN #20 tablet 10/27/14 3 Days Ago Rx ~11/08/16 predniSONE [Deltasone] 40 mg PO QDAY #14 tablet 11/11/16 Unknown Rx valACYclovir [Valtrex] 1,000 mg PO TID #42 tablet 11/11/16 Unknown Rx Naproxen [Naprosyn] 500 mg PO BID #14 tablet 08/31/17 Unknown Rx Penicillin V Potassium 500 mg PO QID 10 Days #40 tablet 12/07/18 Unknown Rx Allergies Allergy/AdvReac Type Severity Reaction Status Date / Time No Known Allergies Allergy Verified 06/30/15 18:35 ED Review of Systems ROS: Stated complaint: RT SIDE FACE SWELLING Other details as noted in HPI Constitutional: denies: fever, malaise Respiratory: denies: cough, shortness of breath Neurological: headache ED Past Medical Hx - Past Medical History Previous Medical History?: Yes Hx Congestive Heart Failure: No Hx Diabetes: No Hx Asthma: No Hx COPD: No Hx HIV: No Additional medical history: Scoliosis. CHRONIC PELVIC PAIN. RUPTURED CYSTS - Surgical History Past Surgical History?: Yes Additional Surgical History: tubes in ear - Social History Smoking Status: Never Smoker Substance Use Type: None - Medications Home Medications: Home Medications Medication Instructions Recorded Confirmed Last Taken Type Albuterol Sulfate [Ventolin HFA] 2 puff IH Q4H PRN #1 hfa.aer.ad 07/21/13 11/11/16 3 Days Ago Rx ~11/08/16 Cyclobenzaprine [Flexeril 10 MG 10 mg PO TID PRN #14 tablet 12/29/13 11/11/16 3 Days Ago Rx TAB] ~11/08/16 Ibuprofen [Motrin 800 MG tab] 800 mg PO Q8H #30 tablet 12/29/13 11/11/16 3 Days Ago Rx ~11/08/16 Neomy/Polymyx B/Hc (Otic) Soln 4 drops OT TID 10 Days bottle 07/05/14 11/11/16 3 Days Ago Rx [Cortisporin (Otic) Soln] ~11/08/16 methOCARBAMOL [Robaxin TAB] 500 mg PO BID #30 tab 07/05/14 11/11/16 3 Days Ago Rx ~11/08/16 Famotidine [Pepcid] 20 mg PO BID #30 tablet 10/27/14 11/11/16 3 Days Ago Rx ~11/08/16 Metaxalone [Skelaxin] 800 mg PO TID #30 tablet 10/27/14 11/11/16 3 Days Ago Rx ~11/08/16 Promethazine [Phenergan TAB] 25 mg PO Q6H PRN #20 tablet 10/27/14 11/11/16 3 Days Ago Rx ~11/08/16 predniSONE [Deltasone] 40 mg PO QDAY #14 tablet 11/11/16 Unknown Rx valACYclovir [Valtrex] 1,000 mg PO TID #42 tablet 11/11/16 Unknown Rx Naproxen [Naprosyn] 500 mg PO BID #14 tablet 08/31/17 Unknown Rx Penicillin V Potassium 500 mg PO QID 10 Days #40 tablet 12/07/18 Unknown Rx ED Physical Exam - General Limitations: No Limitations General appearance: alert, in no apparent distress - Head Head exam: Present: atraumatic, normocephalic - Eye Eye exam: Present: normal appearance - ENT ENT exam: Present: mucous membranes moist, other (mild dental decay large cavity tooth #19 no abscess no neck swelling) - Neck Neck exam: Present: normal inspection, full ROM - Respiratory Respiratory exam: Absent: respiratory distress - Cardiovascular Cardiovascular Exam: Absent: systolic murmur, diastolic murmur, rubs, gallop - Neurological Exam Neurological exam: Present: alert, oriented X3 - Psychiatric Psychiatric exam: Present: normal affect, normal mood - Skin Skin exam: Present: warm, dry, intact, normal color. Absent: rash ED Course Vital Signs 12/07/18 08:10 Temperature 98.4 F Pulse Rate 99 H Respiratory 16 Rate Blood Pressure 135/76 O2 Sat by Pulse 100 Oximetry ED Medical Decision Making - Medical Decision Making Ms. Augustin is a 33 yo female with dental caries. rx: penicillin Critical care attestation.: If time is entered above; I have spent that time in minutes in the direct care of this critically ill patient, excluding procedure time. ED Disposition Clinical Impression: Dental caries Disposition: DC-01 TO HOME OR SELFCARE Is pt being admited?: No Does the pt Need Aspirin: No Condition: Stable Instructions: Dental Caries (ED) Prescriptions: Penicillin V Potassium 500 mg PO QID 10 Days #40 tablet Referrals: [facility] [Outside] - 3-5 Days [facility] [Outside] - 3-5 Days
[2018-12-07] MEDS ORDERED: NORCO 5/325 PO ONE (09:19)
[2018-12-07] MEDS ORDERED: PERCOCET 5/325 PO ONE (09:25)
[2018-12-07] MEDS ORDERED: PERCOCET 5/325 ONE (09:29)
[2018-12-07 09:47] VITALS: BP 122/74
== END 2018-12-07 09:47 | disposition home or self-care (01) ==
LOC: ED 08:00
DX: K02.9 Dental caries, unspecified (principal); G89.29 Other chronic pain; R10.2 Pelvic and perineal pain
CPT/HCPCS: 99282

== ENCOUNTER 2019-03-06 18:22 | Emergency (ER) | payer SELFPAY ==
--- NOTE | 2019-03-06 19:05 | Event Note ---
ED Screening Note Date of service: 03/06/19 Time: 19:03 ED Screening Note: This is a 33 y.o. F. that presents to the ER with headache on right frontal. Reports spasms to right side of face from bells palsy. Patient reports a tampon lodged for 2-3 days. This initial assessment/diagnostic orders/clinical plan/treatment(s) is/are subject to change based on patients health status, clinical progression and re- assessment by fellow clinical providers in the ED. Further treatment and workup at subsequent clinical providers discretion. Patient/guardian urged not to elope from the ED as their condition may be serious if not clinically assessed and managed. Initial orders include:
[2019-03-06 19:51] LABS: Bilirubin,Urine NEG (Negative); Blood,Urine SM (Negative); Color,Urine Yellow (Yellow); Mucus,Urine 3+ /HPF; Protein,Urine <15 mg/dL mg/dL (Negative); Urobilinogen,Urine < 2.0 mg/dL (<2.0)
[2019-03-06] MEDS ORDERED: ZITHROMAX PO ONE (19:55)
[2019-03-06] MEDS ORDERED: ROCEPHIN IM ONE (19:55)
[2019-03-06] MEDS ORDERED: NORCO 5/325 PO ONE (19:55)
[2019-03-06] MEDS ORDERED: XYLOCAINE 1% MPF 5 mL INFILTRATI ONE (19:56)
[2019-03-06] MEDS ORDERED: DELTASONE PO ONE (19:56)
--- NOTE | 2019-03-06 20:06 | Emergency Department Report ---
ED General Adult HPI - General Chief complaint: Urogenital-Female Stated complaint: FACE PAIN Time Seen by Provider: 03/06/19 19:03 Source: patient Mode of arrival: Ambulatory Limitations: No Limitations - History of Present Illness Initial comments: This is a 33 y.o. F. that presents to the ER with headache on right frontal. Reports spasms to right side of face from bells palsy. Patient reports a tampon lodged for 2-3 days. pt denies fever or chills states not sexually active no n/v no back pain. Onset/Timin -: days(s) Location: face Radiation: non-radiation Severity scale (0 -10): 5 Quality: burning, other (tingling ) Consistency: constant Improves with: none Worsens with: none Associated Symptoms: headaches. denies: confusion, chest pain, cough, diaphoresis, fever/chills, loss of appetite, malaise, nausea/vomiting, rash, seizure, shortness of breath, syncope, weakness Treatments Prior to Arrival: none - Related Data Previous Rx's Medication Instructions Recorded Last Taken Type Albuterol Sulfate [Ventolin HFA] 2 puff IH Q4H PRN #1 hfa.aer.ad 07/21/13 3 Days Ago Rx ~11/08/16 Cyclobenzaprine [Flexeril 10 MG 10 mg PO TID PRN #14 tablet 12/29/13 3 Days Ago Rx TAB] ~11/08/16 Ibuprofen [Motrin 800 MG tab] 800 mg PO Q8H #30 tablet 12/29/13 3 Days Ago Rx ~11/08/16 Neomy/Polymyx B/Hc (Otic) Soln 4 drops OT TID 10 Days bottle 07/05/14 3 Days Ago Rx [Cortisporin (Otic) Soln] ~11/08/16 methOCARBAMOL [Robaxin TAB] 500 mg PO BID #30 tab 07/05/14 3 Days Ago Rx ~11/08/16 Famotidine [Pepcid] 20 mg PO BID #30 tablet 10/27/14 3 Days Ago Rx ~11/08/16 Metaxalone [Skelaxin] 800 mg PO TID #30 tablet 10/27/14 3 Days Ago Rx ~11/08/16 Promethazine [Phenergan] 25 mg PO Q6H PRN #20 tablet 10/27/14 3 Days Ago Rx ~11/08/16 predniSONE [Deltasone] 40 mg PO QDAY #14 tablet 11/11/16 Unknown Rx valACYclovir [Valtrex] 1,000 mg PO TID #42 tablet 11/11/16 Unknown Rx Naproxen [Naprosyn] 500 mg PO BID #14 tablet 08/31/17 Unknown Rx Penicillin V Potassium 500 mg PO QID 10 Days #40 tablet 12/07/18 Unknown Rx Doxycycline Monohydrate 100 mg PO BID 10 Days #20 capsule 03/06/19 Unknown Rx Valacyclovir HCl [Valtrex] 1,000 mg PO BID 10 Days #20 tablet 03/06/19 Unknown Rx metroNIDAZOLE [Flagyl] 500 mg PO BID 10 Days #20 tab 03/06/19 Unknown Rx traMADol [Ultram] 50 mg PO Q6HR PRN #12 tablet 03/06/19 Unknown Rx Allergies Allergy/AdvReac Type Severity Reaction Status Date / Time No Known Allergies Allergy Verified 06/30/15 18:35 ED Review of Systems ROS: Stated complaint: FACE PAIN Other details as noted in HPI Constitutional: denies: chills, fever Eyes: denies: eye pain, eye discharge, vision change ENT: denies: ear pain, throat pain Respiratory: denies: cough, shortness of breath, wheezing Cardiovascular: denies: chest pain, palpitations Endocrine: no symptoms reported Gastrointestinal: denies: abdominal pain, nausea, vomiting, diarrhea Genitourinary: denies: urgency, dysuria, frequency, hematuria, discharge, other (retained tampon x 3 days ) Musculoskeletal: denies: back pain, joint swelling, arthralgia Skin: as per HPI Neurological: headache. denies: weakness, paresthesias Psychiatric: denies: anxiety, depression Hematological/Lymphatic: as per HPI ED Past Medical Hx - Past Medical History Hx Congestive Heart Failure: No Hx Diabetes: No Hx Asthma: No Hx COPD: No Hx HIV: No Additional medical history: Scoliosis. CHRONIC PELVIC PAIN. RUPTURED CYSTS. BARNES'S PALSY - Surgical History Additional Surgical History: tubes in ear - Social History Smoking Status: Never Smoker Substance Use Type: Alcohol - Medications Home Medications: Home Medications Medication Instructions Recorded Confirmed Last Taken Type Albuterol Sulfate [Ventolin HFA] 2 puff IH Q4H PRN #1 hfa.aer.ad 07/21/13 11/11/16 3 Days Ago Rx ~11/08/16 Cyclobenzaprine [Flexeril 10 MG 10 mg PO TID PRN #14 tablet 12/29/13 11/11/16 3 Days Ago Rx TAB] ~11/08/16 Ibuprofen [Motrin 800 MG tab] 800 mg PO Q8H #30 tablet 12/29/13 11/11/16 3 Days Ago Rx ~11/08/16 Neomy/Polymyx B/Hc (Otic) Soln 4 drops OT TID 10 Days bottle 07/05/14 11/11/16 3 Days Ago Rx [Cortisporin (Otic) Soln] ~11/08/16 methOCARBAMOL [Robaxin TAB] 500 mg PO BID #30 tab 07/05/14 11/11/16 3 Days Ago Rx ~11/08/16 Famotidine [Pepcid] 20 mg PO BID #30 tablet 10/27/14 11/11/16 3 Days Ago Rx ~11/08/16 Metaxalone [Skelaxin] 800 mg PO TID #30 tablet 10/27/14 11/11/16 3 Days Ago Rx ~11/08/16 Promethazine [Phenergan] 25 mg PO Q6H PRN #20 tablet 10/27/14 11/11/16 3 Days Ago Rx ~11/08/16 predniSONE [Deltasone] 40 mg PO QDAY #14 tablet 11/11/16 Unknown Rx valACYclovir [Valtrex] 1,000 mg PO TID #42 tablet 11/11/16 Unknown Rx Naproxen [Naprosyn] 500 mg PO BID #14 tablet 08/31/17 Unknown Rx Penicillin V Potassium 500 mg PO QID 10 Days #40 tablet 12/07/18 Unknown Rx Doxycycline Monohydrate 100 mg PO BID 10 Days #20 capsule 03/06/19 Unknown Rx Valacyclovir HCl [Valtrex] 1,000 mg PO BID 10 Days #20 tablet 03/06/19 Unknown Rx metroNIDAZOLE [Flagyl] 500 mg PO BID 10 Days #20 tab 03/06/19 Unknown Rx traMADol [Ultram] 50 mg PO Q6HR PRN #12 tablet 03/06/19 Unknown Rx ED Physical Exam - General Limitations: No Limitations General appearance: alert, in no apparent distress - Head Head exam: Present: atraumatic, normocephalic, normal inspection - Eye Eye exam: Present: normal appearance, PERRL, EOMI. Absent: conjunctival injection, nystagmus Pupils: Present: normal accommodation - ENT ENT exam: Present: normal orophraynx, mucous membranes moist, TM's normal bilaterally, normal external ear exam - Expanded ENT Exam Expanded Ear exam: Present: normal external inspection Mouth exam: Present: normal external inspection. Absent: trismus Teeth exam: Present: normal inspection Throat exam: Positive: normal inspection. Negative: tonsillar erythema, tonsillomegaly, tonsillar exudate, R peritonsillar mass, L peritonsillar mass - Neck Neck exam: Present: normal inspection - Respiratory Respiratory exam: Present: normal lung sounds bilaterally. Absent: respiratory distress, wheezes, stridor, chest wall tenderness - Cardiovascular Cardiovascular Exam: Present: regular rate, normal rhythm, normal heart sounds. Absent: systolic murmur, diastolic murmur, rubs, gallop - GI/Abdominal GI/Abdominal exam: Present: soft, normal bowel sounds. Absent: distended, tenderness, bruit, hernia - Rectal Rectal exam: Present: deferred - Extremities Exam Extremities exam: Present: normal inspection, full ROM, normal capillary refill. Absent: tenderness, pedal edema, joint swelling, calf tenderness - Back Exam Back exam: Present: normal inspection, full ROM. Absent: tenderness, CVA tenderness (R), CVA tenderness (L), muscle spasm, paraspinal tenderness, vertebral tenderness, rash noted - Neurological Exam Neurological exam: Present: alert, oriented X3, CN II-XII intact, normal gait, reflexes normal. Absent: motor sensory deficit - Expanded Neurological Exam Expanded Patient oriented to: Present: person, place, time Speech: Present: fluid speech Cranial nerves: EOM's Intact: Normal, Gag Reflex: Normal, Tongue Deviation: Normal, Nystagmus: Normal, Facial Sensation: Normal, Facial Palsy with Forehead Movement: Normal, Facial Palsy without Forehead Movement: Normal Cerebellar function: Finger to Nose: Normal, Heel to [place]: Normal, Romberg: Normal Upper motor neuron: Mike Neglect: Normal, Pronator Drift: Normal, Babinski Sign: Normal, Sensory Extinction: Normal Sensory exam: Upper Extremity Light Touch: Normal, Upper Extremity Pin Prick: Normal, Upper Extremity Temperature: Normal, UE 2 Point Discrimination: Normal, Lower Extremity Light Touch: Normal, Lower Extremity Pin Prick: Normal, Lower Extremity Temperature: Normal, LE 2 Point Discrimination: Normal Motor strength exam: RUE: 5, LUE: 5, RLE: 5, LLE: 5 DTR: bicep (R): 2+, bicep (L): 2+, tricep (R): 2+, tricep (L): 2+, knee (R): 2+, knee (L): 2+, ankle (R): 2+, ankle (L): 2+ Best Eye Response ([place]): (4) open spontaneously Best Motor Response (Dar): (6) obeys commands Best Verbal Response ([place]): (5) oriented [place] Total: 15 - Psychiatric Psychiatric exam: Present: normal affect, normal mood - Skin Skin exam: Present: warm, dry, intact, normal color. Absent: rash ED Course Vital Signs 03/06/19 19:03 Temperature 98 F Pulse Rate 109 H Respiratory 18 Rate Blood Pressure 121/83 O2 Sat by Pulse 99 Oximetry ED Medical Decision Making - Medical Decision Making no retained tampon noted on vaginal exam mild white vaginal wall discharge nonmalodorous no cervical pain or discharge no bleeding no foreignbody, neuro exam is normal no facial paralysis no numbess no weakness CN II-XII grossly intact , neg Fast exam, plan: dc to home with rx for flagyl, doxycyclin, valtrax , ultram pt will follow up with pcp in 2-3 days follow up with neurology as scheduled. pt verbalized agreemetnt and understanding of discharge. Critical care attestation.: If time is entered above; I have spent that time in minutes in the direct care of this critically ill patient, excluding procedure time. ED Disposition Clinical Impression: History of Barnes's palsy Retained tampon Qualifiers: Encounter type: initial encounter Qualified Code(s): T19.2XXA - Foreign body in vulva and vagina, initial encounter Headache Qualifiers: Headache type: unspecified Headache chronicity pattern: unspecified pattern Intractability: not intractable Qualified Code(s): R51 - Headache Disposition: DC-01 TO HOME OR SELFCARE Is pt being admited?: No Does the pt Need Aspirin: No Condition: Stable Instructions: Barnes Palsy (ED), Vaginitis (ED) Prescriptions: Doxycycline Monohydrate 100 mg PO BID 10 Days #20 capsule metroNIDAZOLE [Flagyl] 500 mg PO BID 10 Days #20 tab traMADol [Ultram] 50 mg PO Q6HR PRN #12 tablet PRN Reason: Pain Valacyclovir HCl [Valtrex] 1,000 mg PO BID 10 Days #20 tablet Referrals: DEMETRIUS ZAVALA MD [Primary Care Provider] - 3-5 Days Forms: Work/School Release Form(ED) Time of Disposition: 20:13
[2019-03-06] MEDS ORDERED: TYLENOL PO ONE (20:09)
[2019-03-06] MEDS ORDERED: ZOFRAN ODT PO ONE (20:57)
[2019-03-06] MEDS ORDERED: ZOFRAN ODT ONE (20:58)
[2019-03-06 21:07] VITALS: BP 143/65
== END 2019-03-06 21:07 | disposition home or self-care (01) ==
LOC: ED 18:22
DX: T19.2XXA Foreign body in vulva and vagina, initial encounter (principal); R51 Headache; G51.0 Bell's palsy; Z79.1 Long term (current) use of non-steroidal anti-inflammatories (NSAID); Z79.899 Other long term (current) drug therapy; X58.XXXA Exposure to other specified factors, initial encounter; Y93.89 Activity, other specified; Y92.89 Other specified places as the place of occurrence of the external cause; Y99.8 Other external cause status
CPT/HCPCS: 81001; 96372; 99283; J0696; J7512; Q0162

== ENCOUNTER 2022-04-25 10:36 | Emergency (ER) | payer SELFPAY ==
--- NOTE | 2022-04-25 15:05 | XRay Report ---
Left foot 3 views INDICATION: Foot pain FINDINGS: MTP joints and IP joints appear normal. Midfoot alignment appears normal. No acute findings . Signer Name: Melvin Lima MD Signed: 04/25/2022 3:01 PM Workstation Name: [id number]
--- NOTE | 2022-04-25 15:24 | Emergency Department Report ---
- General Chief complaint: Skin/Abscess/Foreign Body Stated complaint: ABD PAIN/ KNOT UNDER BREAST Time Seen by Provider: 04/25/22 14:38 Source: patient Mode of arrival: Ambulatory Limitations: No Limitations - History of Present Illness Initial comments: This is a 37-year-old female nontoxic, well nourished in appearance, no acute signs of distress presents to the ED with 2 complaints: 1) with c/o of redness and pain to lateral breast area x several days. Patient denies any pus or drainage. Patient denies any fever, chills, nausea, vomiting, chest pain, shortness of breath, headache or stiff neck. 2) left foot pain 3 weeks. Patient stated that she hit herself against the door. Patient denies any other injuries or trauma. Patient denies any numbness, tingling, fever, chills, nausea, vomiting, chest pain, shortness of breath, headache, stiff neck. Patient denies any joint swelling or joint redness. Patient denies decreased range of motion. Patient stated has decreased gait due to pain. -: days(s) Severity: mild Severity scale (0 -10): 3 Quality: aching Consistency: constant Improves with: none Worsens with: none Associated symptoms: denies other symptoms Treatments Prior to Arrival: none - Related Data Previous Rx's Medication Instructions Recorded Last Taken Type Albuterol Sulfate [Ventolin HFA] 2 puff IH Q4H PRN #1 hfa.aer.ad 07/21/13 3 Days Ago Rx ~11/08/16 Cyclobenzaprine [Flexeril 10 MG 10 mg PO TID PRN #14 tablet 12/29/13 3 Days Ago Rx TAB] ~11/08/16 Ibuprofen [Motrin 800 MG tab] 800 mg PO Q8H #30 tablet 12/29/13 3 Days Ago Rx ~11/08/16 Neomy/Polymyx B/Hc (Otic) Soln 4 drops OT TID 10 Days bottle 07/05/14 3 Days Ago Rx [Cortisporin (Otic) Soln] ~11/08/16 methOCARBAMOL [Robaxin TAB] 500 mg PO BID #30 tab 07/05/14 3 Days Ago Rx ~11/08/16 Famotidine [Pepcid] 20 mg PO BID #30 tablet 10/27/14 3 Days Ago Rx ~11/08/16 Metaxalone [Skelaxin] 800 mg PO TID #30 tablet 10/27/14 3 Days Ago Rx ~11/08/16 Promethazine [Phenergan] 25 mg PO Q6H PRN #20 tablet 10/27/14 3 Days Ago Rx ~11/08/16 predniSONE [Deltasone] 40 mg PO QDAY #14 tablet 11/11/16 Unknown Rx valACYclovir [Valtrex] 1,000 mg PO TID #42 tablet 11/11/16 Unknown Rx Naproxen [Naprosyn] 500 mg PO BID #14 tablet 08/31/17 Unknown Rx Penicillin V Potassium 500 mg PO QID 10 Days #40 tablet 12/07/18 Unknown Rx Doxycycline Monohydrate 100 mg PO BID 10 Days #20 capsule 03/06/19 Unknown Rx Valacyclovir HCl [Valtrex] 1,000 mg PO BID 10 Days #20 tablet 03/06/19 Unknown Rx metroNIDAZOLE [Flagyl] 500 mg PO BID 10 Days #20 tab 03/06/19 Unknown Rx traMADoL [Ultram] 50 mg PO Q6HR PRN #12 tablet 03/06/19 Unknown Rx Naproxen 500 mg PO Q12H PRN #12 tab 04/25/22 Unknown Rx cephALEXin [Keflex] 500 mg PO Q8HR #21 cap 04/25/22 Unknown Rx Allergies Allergy/AdvReac Type Severity Reaction Status Date / Time No Known Allergies Allergy Verified 06/30/15 18:35 Abscess Boil HPI - HPI Chief Complaint: Skin/Abscess/Foreign Body Stated Complaint: ABD PAIN/ KNOT UNDER BREAST Time Seen by Provider: 04/25/22 14:38 Home Medications: Previous Rx's Medication Instructions Recorded Last Taken Type Albuterol Sulfate [Ventolin HFA] 2 puff IH Q4H PRN #1 hfa.aer.ad 07/21/13 3 Days Ago Rx ~11/08/16 Cyclobenzaprine [Flexeril 10 MG 10 mg PO TID PRN #14 tablet 12/29/13 3 Days Ago Rx TAB] ~11/08/16 Ibuprofen [Motrin 800 MG tab] 800 mg PO Q8H #30 tablet 12/29/13 3 Days Ago Rx ~11/08/16 Neomy/Polymyx B/Hc (Otic) Soln 4 drops OT TID 10 Days bottle 07/05/14 3 Days Ago Rx [Cortisporin (Otic) Soln] ~11/08/16 methOCARBAMOL [Robaxin TAB] 500 mg PO BID #30 tab 07/05/14 3 Days Ago Rx ~11/08/16 Famotidine [Pepcid] 20 mg PO BID #30 tablet 10/27/14 3 Days Ago Rx ~11/08/16 Metaxalone [Skelaxin] 800 mg PO TID #30 tablet 10/27/14 3 Days Ago Rx ~11/08/16 Promethazine [Phenergan] 25 mg PO Q6H PRN #20 tablet 10/27/14 3 Days Ago Rx ~11/08/16 predniSONE [Deltasone] 40 mg PO QDAY #14 tablet 11/11/16 Unknown Rx valACYclovir [Valtrex] 1,000 mg PO TID #42 tablet 11/11/16 Unknown Rx Naproxen [Naprosyn] 500 mg PO BID #14 tablet 08/31/17 Unknown Rx Penicillin V Potassium 500 mg PO QID 10 Days #40 tablet 12/07/18 Unknown Rx Doxycycline Monohydrate 100 mg PO BID 10 Days #20 capsule 03/06/19 Unknown Rx Valacyclovir HCl [Valtrex] 1,000 mg PO BID 10 Days #20 tablet 03/06/19 Unknown Rx metroNIDAZOLE [Flagyl] 500 mg PO BID 10 Days #20 tab 03/06/19 Unknown Rx traMADoL [Ultram] 50 mg PO Q6HR PRN #12 tablet 03/06/19 Unknown Rx Naproxen 500 mg PO Q12H PRN #12 tab 04/25/22 Unknown Rx cephALEXin [Keflex] 500 mg PO Q8HR #21 cap 04/25/22 Unknown Rx Allergies/Adverse Reactions: Allergies Allergy/AdvReac Type Severity Reaction Status Date / Time No Known Allergies Allergy Verified 06/30/15 18:35 ED Review of Systems ROS: Stated complaint: ABD PAIN/ KNOT UNDER BREAST Other details as noted in HPI Comment: All other systems reviewed and negative Constitutional: denies: chills, fever Eyes: denies: eye pain, eye discharge, vision change ENT: denies: ear pain, throat pain Respiratory: denies: cough, shortness of breath, wheezing Cardiovascular: denies: chest pain, palpitations Endocrine: no symptoms reported Gastrointestinal: denies: abdominal pain, nausea, diarrhea Genitourinary: denies: urgency, dysuria, discharge Musculoskeletal: denies: back pain, joint swelling, arthralgia Skin: denies: rash, lesions Neurological: denies: headache, weakness, paresthesias Psychiatric: denies: anxiety, depression Hematological/Lymphatic: denies: easy bleeding, easy bruising ED Past Medical Hx - Past Medical History Previous Medical History?: Yes Hx Congestive Heart Failure: No Hx Diabetes: Yes (Borderline) Hx Asthma: No Hx COPD: No Hx HIV: No Additional medical history: Scoliosis. CHRONIC PELVIC PAIN. RUPTURED CYSTS. BARNES'S PALSY - Surgical History Past Surgical History?: Yes Additional Surgical History: tubes in ear - Social History Smoking Status: Never Smoker Substance Use Type: Alcohol - Medications Home Medications: Home Medications Medication Instructions Recorded Confirmed Last Taken Type Albuterol Sulfate [Ventolin HFA] 2 puff IH Q4H PRN #1 hfa.aer.ad 07/21/13 3 Days Ago Rx ~11/08/16 Cyclobenzaprine [Flexeril 10 MG 10 mg PO TID PRN #14 tablet 12/29/13 11/11/16 3 Days Ago Rx TAB] ~11/08/16 Ibuprofen [Motrin 800 MG tab] 800 mg PO Q8H #30 tablet 12/29/13 11/11/16 3 Days Ago Rx ~11/08/16 Neomy/Polymyx B/Hc (Otic) Soln 4 drops OT TID 10 Days bottle 07/05/14 11/11/16 3 Days Ago Rx [Cortisporin (Otic) Soln] ~11/08/16 methOCARBAMOL [Robaxin TAB] 500 mg PO BID #30 tab 07/05/14 11/11/16 3 Days Ago Rx ~11/08/16 Famotidine [Pepcid] 20 mg PO BID #30 tablet 10/27/14 11/11/16 3 Days Ago Rx ~11/08/16 Metaxalone [Skelaxin] 800 mg PO TID #30 tablet 10/27/14 11/11/16 3 Days Ago Rx ~11/08/16 Promethazine [Phenergan] 25 mg PO Q6H PRN #20 tablet 10/27/14 11/11/16 3 Days Ago Rx ~11/08/16 predniSONE [Deltasone] 40 mg PO QDAY #14 tablet 11/11/16 Unknown Rx valACYclovir [Valtrex] 1,000 mg PO TID #42 tablet 11/11/16 Unknown Rx Naproxen [Naprosyn] 500 mg PO BID #14 tablet 08/31/17 Unknown Rx Penicillin V Potassium 500 mg PO QID 10 Days #40 tablet 12/07/18 Unknown Rx Doxycycline Monohydrate 100 mg PO BID 10 Days #20 capsule 03/06/19 Unknown Rx Valacyclovir HCl [Valtrex] 1,000 mg PO BID 10 Days #20 tablet 03/06/19 Unknown Rx metroNIDAZOLE [Flagyl] 500 mg PO BID 10 Days #20 tab 03/06/19 Unknown Rx traMADoL [Ultram] 50 mg PO Q6HR PRN #12 tablet 03/06/19 Unknown Rx Naproxen 500 mg PO Q12H PRN #12 tab 04/25/22 Unknown Rx cephALEXin [Keflex] 500 mg PO Q8HR #21 cap 04/25/22 Unknown Rx ED Physical Exam - General Limitations: No Limitations General appearance: alert, in no apparent distress - Head Head exam: Present: atraumatic, normocephalic - Eye Eye exam: Present: normal appearance - Neck Neck exam: Present: normal inspection, full ROM. Absent: lymphadenopathy - Respiratory Respiratory exam: Present: normal lung sounds bilaterally. Absent: respiratory distress, wheezes, rales, rhonchi, stridor, chest wall tenderness, accessory muscle use, decreased breath sounds, prolonged expiratory - Cardiovascular Cardiovascular Exam: Present: regular rate, normal rhythm, normal heart sounds. Absent: irregular rhythm, systolic murmur, diastolic murmur, rubs, gallop - Extremities Exam Extremities exam: Present: normal inspection, full ROM, tenderness, normal capillary refill. Absent: pedal edema, joint swelling, calf tenderness - Expanded Lower Extremity Exam Left Hip exam: Present: normal inspection, full ROM. Absent: tenderness, swelling Upper Leg exam: Present: normal inspection, full ROM. Absent: tenderness, swelling Knee exam: Present: normal inspection, full ROM. Absent: tenderness, swelling Lower Leg exam: Present: normal inspection, full ROM. Absent: tenderness, swelling, abrasion, laceration, ecchymosis, deformity, crepidus, dislocation, erythema, palpable cord, Tricia's sign Ankle exam: Present: normal inspection, full ROM. Absent: tenderness, swelling, abrasion, laceration, ecchymosis, deformity, crepidus, dislocation, erythema, anterior draw sign Foot/Toe exam: Present: normal inspection, full ROM, tenderness. Absent: swelling, abrasion, laceration, ecchymosis, deformity, crepidus, dislocation, erythema, amputation, puncture wound, foreign body, calcaneal tenderness, tenderness at base of 5th metatarsal, nail avulsion, subungual hematoma Neuro vascular tendon exam: Present: no vascular compromise Gait: Positive: observed and normal 1 - pain here - Back Exam Back exam: Present: normal inspection, full ROM. Absent: tenderness, CVA tenderness (R), CVA tenderness (L), muscle spasm, paraspinal tenderness, vertebral tenderness, rash noted - Neurological Exam Neurological exam: Present: alert, oriented X3, normal gait - Psychiatric Psychiatric exam: Present: normal affect, normal mood - Skin Skin exam: Present: warm, dry, intact, normal color. Absent: rash - Expanded Skin Exam Expanded 1 - 2 cm cellulitis with some swelling. Exam does not show any no induration or fluctuance. ED Course Vital Signs 04/25/22 15:38 Temperature 98.6 F Pulse Rate 78 Respiratory 16 Rate Blood Pressure 138/89 [Left] O2 Sat by Pulse 100 Oximetry - Reevaluation(s) Reevaluation #1: 04/25/22 15:24 Patient is speaking in full sentences with no signs of distress noted. ED Medical Decision Making - Radiology Data [facility] [address] [place] [address] XRay Report Signed Patient: RUBIA REEVES MR#: [id number] : 1985 Acct:[id number] Age/Sex: 37 / F ADM Date: 04/25/22 Loc: ED Attending Dr: Ordering Physician: LEANN KOCH NP Date of Service: 04/25/22 Procedure(s): XR foot 3+V LT Accession Number(s): [id number] cc: LEANN KOCH NP Fluoro Time In Minutes: Left foot 3 views INDICATION: Foot pain FINDINGS: MTP joints and IP joints appear normal. Midfoot alignment appears normal. No acute findings. Signer Name: Melvin Lima MD Signed: 04/25/2022 3:01 PM Workstation Name: [id number] Transcribed By: DIANN Dictated By: WEI LIMA MD Electronically Authenticated By: WEI LIMA MD Signed Date/Time: 04/25/221500 DD/ 00 TD/TT: - Medical Decision Making Patient is stable and was examined by me. There is no induration, fluctuance. No signs of abscess formation. The area has been outlined with a permanent hernan er and patient was instructed to observe symptoms of increased redness or swelling and to return to the ER if this does occur. I will discharge patient with Keflex. I referred patient to an orthopedic doctor for further evaluation for possible MRI. X-ray report has been obtained and dictated by the radiologist. Patient is notified of the x-ray report with noted by the patient. Patient does have normal gait with some tenderness and no joint swelling. No ecchymosis. no joint redness or swelling. Not warm to touch. At time of discharge, the patient does not seem toxic or ill in appearance. No acute signs of distress noted. Patient agrees to discharge treatment plan of care. No further questions noted by the patient. Critical care attestation.: If time is entered above; I have spent that time in minutes in the direct care of this critically ill patient, excluding procedure time. ED Disposition Clinical Impression: Injury of left foot Qualifiers: Encounter type: initial encounter Qualified Code(s): S99.922A - Unspecified injury of left foot, initial encounter Cellulitis Qualifiers: Site of cellulitis: unspecified site Qualified Code(s): L03.90 - Cellulitis, unspecified Disposition: HOME / SELF CARE / HOMELESS Is pt being admited?: No Does the pt Need Aspirin: No Condition: Stable Instructions: RICE Therapy for Routine Care of Injuries, [id number], Cellulitis, Adult Additional Instructions: Follow-up with a primary care doctor in 3-5 days or if symptoms worsen and continue return to emergency room as soon as possible. No physical activity that extremity until cleared by orthopedic doctor Prescriptions: cephALEXin [Keflex] 500 mg PO Q8HR #21 cap Naproxen 500 mg PO Q12H PRN #12 tab PRN Reason: Pain , Severe (7-10) Referrals: PRIMARY CAREMD [Referring] - 3-5 Days DANNY CHOI MD [Staff Physician] - 3-5 Days BRITTANI HALEY MD [Staff Physician] - 3-5 Days Time of Disposition: 15:27
[2022-04-25 15:40] VITALS: BP 138/89
== END 2022-04-25 16:31 | disposition home or self-care (01) ==
LOC: ED 10:36
DX: S99.922A Unspecified injury of left foot, initial encounter (principal); L03.116 Cellulitis of left lower limb; E11.9 Type 2 diabetes mellitus without complications; X58.XXXA Exposure to other specified factors, initial encounter; Y93.89 Activity, other specified; Y92.89 Other specified places as the place of occurrence of the external cause; Y99.8 Other external cause status
CPT/HCPCS: 99283